=== PATIENT | male | born 2000 | race Two or more races ===

== ENCOUNTER 2025-01-02 10:05 | Emergency (ER) | payer OTHER, SELFPAY ==
[2025-01-02 10:06] VITALS: BMI 26.5
[2025-01-02 10:30] VITALS: BP 115/67; PULSE 76; RESP 19; TEMP 36.9; O2SAT 97
--- NOTE | 2025-01-02 10:41 | EDNOTE_ITS ---
<Statement entered by Meaghan Benoit MD - 01/02/25 17:41> As co-signing physician, I was present and available for consult prn. I concur with the plan and care as documented by the midlevel provider. ED Abdominal Pain RME/HPI General Chief Complaint: Abdominal Pain Stated complaint: +H CLOTILDE, NEEDS MEDS ABD PAIN Time seen by provider: 01/02/25 10:45 Arrival date/time: 01/02/25 10:05 24-year-old female with no known medical history presents to the emergency room with a chief complaint of needing medication to treat his H. pylori infection. 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 Patient states he had a urea breath test and he tested positive for H. pylori. Source: patient Mode of arrival: ambulatory Limitations: no limitations Related Data Previous Rx's ?Medication ?Instructions ?Recorded clarithromycin 500 mg tablet 500 mg PO BID 10 days #20 tabs 01/02/25 metronidazole 500 mg tablet 500 mg PO BID 2 weeks #28 tabs 01/02/25 omeprazole 40 mg capsule,delayed 40 mg PO QDAY 2 weeks #14 caps 01/02/25 release Allergies Allergy/AdvReac Type Severity Reaction Status Date / Time No Known Allergies Allergy Verified 01/02/25 10:09 Review of Systems Review of Systems Systems Reviewed: All systems reviewed, normal except as documented Constitutional Constitutional: Reports system reviewed and no additional complaints, except as documented, Denies fatigue, Denies fever(s), Denies headache(s) and Denies weakness Eyes Eyes: Reports system reviewed and no additional complaints, except as documented, Denies blurry vision and Denies change in vision ENT Ears, Nose, Mouth, and Throat: Reports system reviewed and no additional complaints, except as documented, Denies otalgia, Denies headache(s), Denies nasal congestion, Denies throat swelling and Denies vertigo Cardiovascular Cardiovascular: Reports system reviewed and no additional complaints, except as documented, Denies chest pain, Denies dyspnea and Denies dyspnea on exertion Respiratory Respiratory: Reports system reviewed and no additional complaints, except as documented, Denies chest congestion, Denies cough, Denies dyspnea, Denies dyspnea on exertion and Denies wheezing Gastrointestinal Gastrointestinal: Reports system reviewed and no additional complaints, except as documented, Reports abdominal pain, Reports cramping, Reports nausea and Denies vomiting Genitourinary Genitourinary: Reports system reviewed and no additional complaints, except as documented, Denies dysuria and Denies hematuria Musculoskeletal Musculoskeletal: Reports system reviewed and no additional complaints, except as documented and Denies back pain Integumentary/Breasts Skin/Breast: Reports system reviewed and no additional complaints, except as documented and Denies wounds Neurologic Neurologic: Reports system reviewed and no additional complaints, except as documented, Denies confusion, Denies headache(s), Denies lack of coordination, Denies vertigo and Denies weakness Psychiatric Psychiatric: Reports system reviewed and no additional complaints, except as documented, Denies anxiety, Denies confusion, Denies depression, Denies paranoia, Denies suicidal ideation and Denies tactile hallucinations Endocrine Endocrine: Reports system reviewed and no additional complaints, except as documented and Denies fatigue Hematologic/Lymphatic Hematologic/Lymphatic: Reports system reviewed and no additional complaints, except as documented and Denies lymphadenopathy Allergic/Immunologic Allergic/Immunologic: Reports system reviewed and no additional complaints, except as documented, Denies throat swelling, Denies urticaria and Denies wheezing Past Medical History Social History SMOKING STATUS: Never smoker ED Exam General Limitations: Present no limitations General appearance: Present alert and in no apparent distress Head Head exam: Present atraumatic Eye Eye exam: Present normal appearance, PERRL and EOMI ENT ENT exam: Present normal exam, normal oropharynx and mucous membranes moist Neck Neck exam: Present normal inspection, full ROM and trachea midline Chest Chest inspection: Present normal inspection and symmetric chest wall rise Respiratory Respiratory exam: Present normal lung sounds bilaterally; Absent respiratory distress, wheezes, stridor, accessory muscle use or prolonged expiratory phase Cardiovascular Cardiovascular exam: Present regular rate, normal rhythm and normal heart sounds Abdominal Exam Abdominal exam: Present soft and normal bowel sounds; Absent tenderness Extremities Exam Extremities exam: Present normal inspection and full ROM Back Exam Back exam: Present normal inspection and full ROM Neurological Exam Neurological exam: Present alert, oriented X3 and CN II-XII intact Psychiatric Psychiatric exam: Present normal affect and normal mood Skin Skin exam: Present warm, dry, intact and normal color Course Quality Measures none Vital Signs Vital signs: Vital Signs Temperature 98.4 F 01/02/25 10:30 Pulse Rate 76 01/02/25 10:30 Respiratory Rate 19 01/02/25 10:30 Blood Pressure 115/67 01/02/25 10:30 Pulse Oximetry (%) 97 01/02/25 10:30 Oxygen Delivery Method Room Air 01/02/25 10:30 Abdominal Pain MDM MDM Narrative MDM Narrative:: 24-year-old female with no known medical history presents to the emergency room with a chief complaint of needing medication to treat his H. pylori infection. 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 Patient states he had a urea breath test and he tested positive for H. pylori. Patient is hemodynamically stable and in no apparent distress Antibiotic treatments were sent to his patient's pharmacy to treat his H. pylori. Patient was discharged and educated to follow-up with primary care provider and return to the emergency room for any evidence of worsening signs or symptoms Patient data External records reviewed:: [facility] previous records Clinical information provided by:: patient and none Social determinants that could affect healthcare access:: none Patient has the following chronic illnesses:: No chronic illness How is presenting disease/condition affected by chronic disease/condition?: no chronic disease Evaluation data The following diagnostics were reviewed and interpreted by me:: lab results and radiology exam(s) Lab and/or radiology exams considered but not ordered:: Labs and radiology exams considered and ordered Interpretation Summary: N/A Medications / Prescriptions Medications or Prescriptions considered but not ordered:: Rx given Medication administrations:: Rx given Consultations Consultation(s) initiated? (list below): No Diagnosis Differential diagnosis abdominal pain: abdominal pain, gastroenteritis and other (H. pylori) Most likely diagnosis given after review of the tests above:: H. pylori Admission Indicated Admission indicated?: not indicated Admission Request Was there a request for admission?: No Disposition Plan Disposition Plan: Discharge Discharge Attestation Discharge Attestation: The patient and all family members were given an opportunity to ask questions and understood the discharge instructions. Discharge instructions specifically effects, indications for sooner follow up or return to the emergency department, and the expected course of current diagnosis. Patient condition: Stable Discharge Plan Plan Patient Disposition: HOME (Self Care) Disposition Comment: Stable Prescriptions/Referrals Prescriptions/Med Rec: New metronidazole 500 mg tablet 500 mg PO BID 14 Days Qty: 28 0RF omeprazole 40 mg capsule,delayed release(DR/EC) 40 mg PO QDAY 14 Days Qty: 14 0RF clarithromycin 500 mg tablet 500 mg PO BID 10 Days Qty: 20 0RF Problem List Clinical Impression: Helicobacter pylori (H. pylori) Patient/Caregiver Discharge Instructions Education Materials: ED Gastroenteritis, Bacterial (Adult) Additional Instructions: Please follow-up with your primary care provider in the next 24 to 48 hours. For any evidence of worsening signs or symptoms return to the emergency room immediately. Your medication was sent to your pharmacy please pick it up and take it as indicated. Print Language: Hungarian Stand Alone Forms: [facility] Award Info., Work/School Release, Patient Portal Info Letter PA/MUSIC WRITER Supervising Physician PA/MUSIC WRITER Supervising Physician: Dr. BENOIT
== END 2025-01-02 11:27 | disposition home or self-care (01) ==
LOC: SERX 11:07
PROVIDERS: Emergency Provider Emergency Medicine
DX: R10.9 Unspecified abdominal pain (principal); B96.81 Helicobacter pylori [H. pylori] as the cause of diseases classified elsewhere
CPT/HCPCS: 99281